=== PATIENT | male | born 1985 | race Hispanic/Latino ===

== ENCOUNTER 2024-11-23 14:35 | Emergency (ER) | payer BC ==
[~2024-11-23] VITALS: Ht 170.2 cm; Wt 86.2 kg
--- NOTE | 2024-11-23 15:05 | ERN ---
ED Note History of Present Illness Stated Complaint: RT KNEE LACERATION Chief Complaint: Laceration/Avulsion Time Seen by MD: 14:39 Time Seen by Midlevel: 14:45 Dictation: Mr. Garcia is a 39-year-old male with no reported chronic health issues who p resented to the emergency department this afternoon for evaluation of knee wound. He states he was working on a vehicle and he sustained a puncture wound (metal object) just above the right knee and has large open wound. Bleeding has been controlled with direct pressure. Denies additional injury. Pain moderate. He denies fever, chills, shortness of breath, cough, chest pain, palpitations, edema, abdominal pain, nausea, vomiting, hematemesis, constipation, diarrhea, melena, hematochezia, dysuria, headache, dizziness, or focal weakness/paresthesia Allergies: Coded Allergies: No Known Drug Allergies (Unverified Allergy, Unknown, 11/23/24) Emergency Care BROWN SOURER: None Home Meds Active Scripts Ibuprofen (Ibuprofen) 600 Mg Tablet, 600 MG PO Q6H PRN for PAIN, #15 TAB 0 Refills Prov:HENOK MCCARTHY NP 11/23/24 Cephalexin (Cephalexin) 500 Mg Tablet, 1 TAB PO QID for 7 Days, #28 TAB 0 Refills Prov:HENOK MCCARTHY NP 11/23/24 Past Medical History Past Medical History: No Pertinent History Surgical History: Cholecystectomy PSYCH History: no pertinent psych hx Social History: Negative, Lives with family RN Note Reviewed/Agreed w/PFSH: Yes Review of System Dictation REVIEW OF SYSTEMS: CONSTITUTIONAL: Patient denies fevers, chills, sweats and weight changes. EYES: Patient denies any visual symptoms. EARS, NOSE, AND THROAT: No difficulties with hearing. No symptoms of rhinitis or sore throat. CARDIOVASCULAR: Patient denies chest pains, palpitations, orthopnea and paroxysmal nocturnal dyspnea. RESPIRATORY: No dyspnea on exertion, no wheezing or cough. GI: No nausea, vomiting, diarrhea, constipation, abdominal pain, hematochezia or melena. : No urinary hesitancy or dribbling. No nocturia or urinary frequency. No abnormal urethral discharge. MUSCULOSKELETAL: Reports pain right knee. Range of motion is intact NEUROLOGIC: No chronic headaches, no seizures. Patient denies numbness, tingling or weakness. PSYCHIATRIC: Patient denies problems with mood disturbance. No problems with anxiety. ENDOCRINE: No excessive urination or excessive thirst. DERMATOLOGIC: Reports laceration/puncture to area just above the right knee. Initial Vital Sign VS Vital Signs Date Time Temp Pulse Resp B/P (MAP) Pulse Ox O2 Delivery O2 Flow Rate FiO2 11/23/24 14:37 97.9 87 18 140/97 96 Room Air 0 11/23/24 15:00 21 Physical Exam Dictation Vital signs: Reviewed. Afebrile Constitutional: No acute distress. Non-toxic appearing. Calm/cooperative. Accompanied by significant other Head/Face: Normocephalic, atraumatic. Eyes: Periorbital areas with no swelling, redness, or edema. Lids and lashes are normal. Conjunctival injection is absent. Sclera anicteric. Pupils equal, round, reactive to light. ENT: Pinnas intact and no signs of trauma or erythema. Ear canals clear and no discharge. TMs no erythema. No nasal discharge or bleeding noted. Oropharynx with no exudate, redness, swelling, masses, exudates, or evidence of obstruction. Uvula midline. Mucous membranes moist. Neck: Trachea midline, no masses palpated, and no cervical lymphadenopathy. No swelling. Supple, full range of motion. Chest/Axilla: No tenderness, no crepitus, no paradoxical movement, no retractions. Cardiovascular: Regular rate, regular rhythm, no murmur, no gallops. Symmetric pulses. No peripheral edema. Respiratory: Respirations even and unlabored. Lung sounds clear; no wheezes, rales or rhonchi. Room air SpO2 100% Gastrointestinal: Inspection is normal. No distention is appreciated. Bowel sounds are normal. No mass or organomegaly . There is no tenderness. No rebound. No rigidity. No voluntary or involuntary guarding. No Arriola's sign. Neurological: Normal speech, gross motor function intact, gross sensory functi on intact. No focal weakness/Paresthesia. Musculoskeletal/Extremities: All extremities have full range of motion, no pain or tenderness on palpation. Symmetric pulses. Range of motion right knee intact. Minimal pain. He has good color, warmth, movement, and sensation to right toes. Capillary refill Integumentary: Skin is normal color, warm and dry. Cap refill less than 2 sec onds. He has a 3x3 cm irregular shaped laceration. Bleeding is controlled. ED Course ED Course Uneventful ED course. Patient received tetanus toxoid update as well as p.o. [place] for discomfort. X-ray negative for fracture/dislocation/foreign body. Wound was cleansed well/explored and laceration repaired with sutures x6. Patient tolerated well. He received dose Ancef 1 g IM. Findings were discussed with patient and significant other and all questions were answered. Medical Decision Making MDM MDM: Differential diagnosis: Foreign body right knee, laceration, fracture Rationale: Tests considered and ordered secondary to shared decision making include: X-ray Previous outside records reviewed: Old ER visits. Risk of complication and/or morbidity or mortality of patient management: None Medications-Per medication reconciliation Need for hospitalization: Patient does not meet criteria for hospitalization. Need for emergency major/minor surgery: No There are no social concerns with this patient. Prescription drug management: Ibuprofen, cephalexin Prescriptions will include symptomatic care Patient's prior external medical records from other ER visits were reviewed by me as indicated. Prior testing and results from previous visits were reviewed. Prior tests were taken into account with medical decision making and resource utilization, independent historian/historians were used to obtain complete medical history. I independently interpreted the test that were performed, results were reviewed by me and considered findings on radiology if ordered. Medical management and examination interpretation discussions were had by me with other qualified healthcare professionals as indicated for the patient's care. Procedure Wound Location: lower extremity (above right knee) Wound Length (cm): 3 Wound's Depth, Shape: irregular Wound Explored: clean Irrigated w/ Saline (ccs): 500 Betadine Prep?: Yes Anesthesia: 1% Lidocaine Volume Anesthetic (ccs): 5 Suture Size/Type: 3:0 Number of Sutures: 6 DX & DISP Disposition: Discharge Departure Impression: Primary Impression: Laceration of right lower extremity Condition: Stable Scripts Ibuprofen (Ibuprofen) 600 Mg Tablet 600 MG PO Q6H PRN for PAIN, #15 TAB 0 Refills Prov: HENOK MCCARTHY NP 11/23/24 Cephalexin (Cephalexin) 500 Mg Tablet 1 TAB PO QID for 7 Days, #28 TAB 0 Refills Prov: HNEOK MCCARTHY CLAIM PROCESSING SPECIALIST 11/23/24 Additional Instructions: Keep the wound clean and dry for the next 24-48 hours. After 48 hours, gently clean with soap and water once daily, pat dry, and apply clean/dry bandage. Do not soak the wound (no baths, hot tubs, or swimming) until sutures are removed. Avoid strenuous activities or bending the knee exacerbated prevent suture disruption. Continue antibiotic with cephalexin q.i.d. x7 days. May take [id number] Tylenol or ibuprofen as needed for pain. Return to ER or PCP in the next 7-10 days for suture removal. Monitor for signs of infection: Redness, swelling, warmth. Pus/foul-smelling drainage. Fever greater than 100.4. Wound reopened 0 bleeding does not stop. Or pain that worsens instead of improving. You received a tetanus update. Referrals: SELF,REFERRAL (PCP) Time of Disposition: 16:40 ATTESTATION BY PHYSICIAN I PERFORMED THE SUBSTANTIVE PORTION OF THE VISIT. I HAVE REVIEWED AND PERSONALLY MADE AND APPROVED THE MANAGEMENT PLAN THAT IS DOCUMENTED IN THE NOTE BY MYSELF FOR THE A PP. HENOK MCCARTHY NP Nov 23, 2024 15:05 BARBI STAPLETON MD Nov 28, 2024 04:34
[2024-11-23] MEDS: HYDROcodone/APAP 5/325 1 TAB TABLET PO ONE (15:15)
[2024-11-23] MEDS: teTANUS/diphthERIA TOXOID [ADULT] 0.5 ML VIAL IM ONE (15:17)
[2024-11-23] MEDS: ceFAZolin SODIUM 1 GM VIAL IM ONE (16:31)
--- NOTE | 2024-11-23 16:35 | NUR ---
WOUND CLEANED AND DRESSED, PT TOLERATED WELL
[2024-11-23] MEDS ORDERED: CEPH500T PO (16:38)
[2024-11-23] MEDS ORDERED: IBUP-2070 PO (16:38)
[2024-11-23 16:40] VITALS: BP 132/88; PULSE 82; RESP 18; TEMP 97.9; O2SAT 96
--- NOTE | 2024-11-23 17:00 | HMCIMG ---
KNEE 3VWS RT HISTORY: Laceration COMPARISON: None TECHNIQUE: 3 images of right knee were obtained. FINDINGS: There is no acute displaced fracture or dislocation. IMPRESSION: 1. Findings as described above.
== END 2024-11-23 16:41 | disposition home or self-care (01) ==
LOC: EDH 14:35
DX: S81.011A Laceration without foreign body, right knee, initial encounter (principal); Z90.49 Acquired absence of other specified parts of digestive tract; W26.8XXA Contact with other sharp object(s), not elsewhere classified, initial encounter; Y93.89 Activity, other specified; Y92.89 Other specified places as the place of occurrence of the external cause; Y99.8 Other external cause status
CPT/HCPCS: 99284; 90714; 73562; 96372; 90471; 12002; J0690